=== PATIENT | female | born 1985 | race Two or more races ===

== ENCOUNTER 2021-01-22 23:45 | Inpatient (IN) ==
[2021-01-23] MEDS ORDERED: D5 1/2 NS 1000 ML 1,000 ML IV ONE ×2 (00:11→01:57)
[2021-01-23 00:31] VITALS: BMI 28.6
[2021-01-23 00:33] LABS: HEMATOCRIT 28.7 % (36.0-47.0); MEAN CORPUSCULAR VOLUME 70.4 fL (80.0-100.0); RED BLOOD COUNT 4.07 X10^6/uL (3.5-5.4)
[2021-01-23 00:44] LABS: ALANINE AMINOTRANSFERASE 12 Units/L (12-78); ALBUMIN 2.5 g/dL (3.4-5.0); ALKALINE PHOSPHATASE 240 Units/L (46-116); ASPARTATE AMINO TRANSFERASE 20 Units/L (15-37); BLOOD UREA NITROGEN 8 mg/dL (7-18); CALCIUM 8.2 mg/dL (8.5-10.1); CARBON DIOXIDE 22.7 mmol/L (21-32); CHLORIDE 102 mmol/L (98-107); COR CA(FOR HYPOALB) 9.4 mg/dL (8.5-10.1); CREATININE 0.52 mg/dL (0.55-1.02); SODIUM 135 mmol/L (136-145); TOTAL PROTEIN 7.3 g/dL (6.4-8.2); eGFR NON BLACK RACES > 60 (>60)
[2021-01-23 00:45] LABS: AMNISURE ROM TEST NO MEMBRANES RUPTURE (NO RUPTURE)
[2021-01-23 00:47] LABS: BASOPHILS % (AUTO) 0.4 % (0.2-1.0); EOSINOPHILS % (AUTO) 0.5 % (0.9-2.9); HEMOGLOBIN 9.3 g/dL (12.0-16.0); LYMPHOCYTES # (AUTO) 2.3 X10^3/uL (1.3-2.9); LYMPHOCYTES % (AUTO) 27.7 % (21.0-51.0); MEAN CORPUSCULAR HEMOGLOBIN 22.8 pg (27.0-34.0); MEAN CORPUSCULAR HGB CONC 32.4 g/dL (33.0-35.0); MEAN PLATELET VOLUME 9.6 fL (7.4-11.0); MONOCYTES # (AUTO) 0.9 x10^3/uL (0.3-0.8); MONOCYTES % (AUTO) 11.5 % (0.0-13.0); NEUTROPHILS # (AUTO) 4.9 x10^3/uL (2.2-4.8); NEUTROPHILS % (AUTO) 59.9 % (42.0-75.0); PLATELET COUNT 212 X10^3/uL (150.0-450.0); RED CELL DISTRIBUTION WIDTH 19.7 % (11.6-16.5); WHITE BLOOD COUNT 8.2 X10^3/uL (3.6-10.0)
[2021-01-23 00:48] LABS: BILIRUBIN,URINE NEGATIVE (NEGATIVE); BLOOD/HEMOGLOBIN,URINE 5+ (NEGATIVE); GLUCOSE, URINE 2+ (NEGATIVE); KETONES,URINE NEGATIVE (NEGATIVE); LEUKOCYTE ESTERASE ,URINE 1+ (NEGATIVE); NITRITES,URINE NEGATIVE (NEGATIVE); PROTEIN,URINE 2+ (NEGATIVE); UROBILINOGEN,URINE NORMAL (NORMAL)
[2021-01-23] MEDS ORDERED: D5 1/2 NS 1000 ML 1,000 ML IV SCH ×2 (01:00→02:00)
[2021-01-23 01:07] LABS: APPEARANCE,URINE SLIGHTLY HAZY (CLEAR); BACTERIA,URINE TRACE /HPF (NEGATIVE); COLOR,URINE YELLOW (YELLOW); SQUAMOUS EPITHELIAL CELL,UR NUMEROUS /HPF (NEGATIVE)
[2021-01-23] MEDS ORDERED: REGLAN INJ 10 MG VIAL IVP PRN (01:45)
[2021-01-23] MEDS ORDERED: D5LR 1L W PITOCIN 10 UNITS/L 10 UNITS/1,000 ML BAG IV PRN (01:45)
[2021-01-23] MEDS ORDERED: PITOCIN IVP ONE (01:45)
[2021-01-23] MEDS ORDERED: PHENERGAN INJ 25 MG IM PRN ×2 (01:45→03:18)
[2021-01-23] MEDS ORDERED: PITOCIN ONE (01:57)
[2021-01-23] MEDS ORDERED: D5 1/2 NS 1L W PITOCIN 20 UNITS/L 20 UNITS/1,000 ML BAG IV ONE (01:58)
[2021-01-23] MEDS ORDERED: D5LR 1L W PITOCIN 10 UNITS/L 10 UNITS/1,000 ML BAG IV ONE (01:58)
[2021-01-23 02:16] LABS: ANISOCYTOSIS SLIGHT; HYPOCHROMASIA SLIGHT; MICROCYTOSIS SLIGHT; PLATELET MORPHOLOGY COMMENT NORMAL (NORMAL)
[2021-01-23] MEDS ORDERED: MOTRIN TAB 800 MG PO PRN (03:18)
[2021-01-23] MEDS ORDERED: AMBIEN PO PRN (03:35)
[2021-01-23] MEDS ORDERED: MILK OF MAGNESIA PO PRN (03:35)
[2021-01-23] MEDS ORDERED: DERMOPLAST PAIN RELIEF SPRAY TOP PRN (03:35)
[2021-01-23] MEDS ORDERED: D5 1/2 NS 1000 ML 1,000 ML with PITOCIN 20 UNITS IV SCH ×2 (04:00)
[2021-01-23 05:13] LABS: HEMATOCRIT 30.2 % (36.0-47.0); HEMOGLOBIN 9.5 g/dL (12.0-16.0)
[2021-01-23] MEDS: MOTRIN TAB 800 MG PO PRN ×3 (05:26→23:50)
[2021-01-23] MEDS: PRENATAL PLUS PO SCH (08:47)
[2021-01-23] MEDS ORDERED: NS 100 ML IV 100 ML with VENOFER 400 MG IV NR ×2 (08:57)
[2021-01-24] MEDS: PRENATAL PLUS PO SCH (08:33)
[2021-01-24] MEDS: MOTRIN TAB 800 MG PO PRN (10:25)
[2021-01-24 12:27] VITALS: BP 108/62
== END 2021-01-24 13:40 | disposition home or self-care (01) | DRG 807 ==
LOC: ER 23:51 → LD 01-23 00:53 → MED/SURG 01-23 03:35
PROVIDERS: ADMIT Obstetrics & Gynecology Obstetrics; ATTEND Obstetrics & Gynecology Obstetrics
DX: O24.410 Gestational diabetes mellitus in pregnancy, diet controlled; Z20.822 Contact with and (suspected) exposure to COVID-19; Z37.0 Single live birth; Z3A.39 39 weeks gestation of pregnancy; O70.0 First degree perineal laceration during delivery